=== PATIENT | female | born 1985 | race Caucasian/White ===

== ENCOUNTER → 2020-07-22 | Outpatient (CLI) | payer BC, OTHER ==
--- NOTE | 2020-07-22 12:11 | CT ---
EXAMINATION TYPE: CT angio chest DATE OF EXAM: 07/22/2020 8:37 AM COMPARISON: None HISTORY: SOB, chest pain CT DLP: 114.4 mGycm Automated exposure control for dose reduction was used. CONTRAST: CTA scan of the thorax is performed with IV Contrast, patient injected with 63 mL of Isovue 370, pulm onary embolism protocol. MIP images are created and reviewed all. FINDINGS: LUNGS: The lungs are grossly clear, there is no concerning parenchymal mass or nodule identified. Th ere is no pleural effusion or pneumothorax seen. The tracheobronchial tree is patent. MEDIASTINUM: There is satisfactory enhancement of the pulmonary artery and its branches, there is no CT evidence for pulmonary embolism. There are no greater than 1 cm hilar or mediastinal lymph nodes. No pericardial effusion is seen. Cardiac size normal. No thoracic aortic aneurysm. OTHER: No additional significant abnormality is seen. IMPRESSION: NO EVIDENCE OF PULMONARY EMBOLISM. NO EVIDENCE OF ACUTE CARDIOPULMONARY PROCESS.
--- NOTE | 2020-07-22 19:18 | ECHOF ---
Referral Reason:R06.00 dyspnea MEASUREMENTS -------- HEIGHT: 180.3 cm WEIGHT: 74.8 kg BP: RVIDd: 2.7 cm (< 3.3) IVSd: 0.8 cm (0.6 - 1.1) LVIDd: 4.7 cm (3.9 - 5.3) LVPWd: 0.8 cm (0.6 - 1.1) IVSs: 0.8 cm LVIDs: 3.4 cm LVPWs: 1.0 cm LA Diam: 2.9 cm (2.7 - 3.8) LAESV Index (A-L): 22.42 ml/m Ao Diam: 2.1 cm (2.0 - 3.7) AV Cusp: 1.9 cm (1.5 - 2.6) MV EXCURSION: 19.523 mm (> 18.000) MV EF SLOPE: 122 mm/s (70 - 150) EPSS: 0.3 cm MV E Octaviano: 0.66 m/s MV DecT: 209 ms MV A Octaviano: 0.45 m/s MV E/A Ratio: 1.45 RAP: 5.00 mmHg RVSP: 17.33 mmHg FINDINGS -------- Sinus rhythm. This was a technically good study. LV size, wall thickness and systolic function are normal, with an EF greater than 55%. The left alex tricular size is normal. The right ventricle is normal in size. The left atrial size is normal. Normal LA size by volume 22+/-6 ml/m2. The right atrial size is normal. The aortic valve is trileaflet, and appears structurally normal. No aortic stenosis or regurgitation. Mild mitral regurgitation is present. Mild tricuspid regurgitation present. Right ventricular systolic pressure is normal at < 35 mmHg. There is no pulmonic regurgitation present. The aortic root size is normal. There is no pericardial effusion. CONCLUSIONS -------- 1. LV size, wall thickness and systolic function are normal, with an EF greater than 55%. 2. The left ventricular size is normal. 3. The right ventricle is normal in size. 4. The left atrial size is normal. 5. Normal LA size by volume 22+/-6 ml/m2. 6. The right atrial size is normal. 7. Mild mitral regurgitation is present. 8. Mild tricuspid regurgitation present. 9. There is no pericardial effusion. TECH ED TEACHER: Jessica Frazier RDCS
== END | disposition home or self-care (01) ==
LOC: RADCTMAIN 07:58
PROVIDERS: ATTEND Internal Medicine
DX: I08.1 Rheumatic disorders of both mitral and tricuspid valves (principal); I26.99 Other pulmonary embolism without acute cor pulmonale; U07.1 COVID-19
CPT/HCPCS: 93306; 71275; Q9967